=== PATIENT | male | born 1940 | race Caucasian/White ===

== ENCOUNTER → 2017-12-07 13:00 | Outpatient (CLI) | payer MEDICARE, OTHER, SELFPAY | PROVIDERS: Family Provider Family Medicine; PCP Family Medicine | DX: Z23 Encounter for immunization (principal) | CPT/HCPCS: 90471; 90662 ==

== ENCOUNTER → 2018-01-03 12:35 | Outpatient (CLI) | payer MEDICARE, OTHER, SELFPAY ==
[2018-01-03 13:32] LABS: Hemoglobin 13.7 g/dL (13.5-17.5)
[2018-01-03 14:32] LABS: HEMOLYSIS < 15 (0-50); Iron 66 ug/dL (49-181)
[2018-01-03 14:36] LABS: BUN Creatinine Ratio 13.3 (6-22); Blood Urea Nitrogen 20 mg/dL (9-20); Calcium 9.3 mg/dL (8.4-10.2); Carbon Dioxide 24 mmol/L (22-32); Chloride 106 mmol/L (98-107); Estimated Glomerular Filt Rate 45.5 mL/min (>60); Glucose 109 mg/dL (80-110); HEMOLYSIS < 15 (0-50); Potassium 4.2 mmol/L (3.4-5.1); Sodium 141 mmol/L (137-145)
[2018-01-03 14:42] LABS: Percent Iron Saturation 17 % (20-50); Total Iron Binding Capacity 391 ug/dL (261-462); Transferrin 352 mg/dL (206-381)
[2018-01-03 16:16] LABS: Ferritin 12.7 ng/mL (17.9-464)
[2018-01-03 16:34] LABS: Creatinine Urine Random 61.7 mg/dL; Protein (Total) Urine Random 14 mg/dL (0-12); Protein Creatinine Ratio Urine 0.22 GRAM/24H
[2018-01-06 15:35] LABS: Parathyroid Hormone Int 68 pg/mL (14-64)
== END ==
PROVIDERS: Family Provider Family Medicine; PCP Family Medicine; Visit Provider Student in an Organized Health Care Education/Training Program
DX: N05.9 Unspecified nephritic syndrome with unspecified morphologic changes (principal); D50.0 Iron deficiency anemia secondary to blood loss (chronic); D64.9 Anemia, unspecified; N25.81 Secondary hyperparathyroidism of renal origin; R80.9 Proteinuria, unspecified
CPT/HCPCS: 36415; 80048; 82570; 82728; 83540; 83550; 83970; 84156; 85014; 85018

== ENCOUNTER → 2018-07-22 13:19 | Outpatient (CLI) | payer MEDICARE, OTHER, SELFPAY ==
[2018-07-22 13:43] LABS: Hematocrit 41.3 % (41-53); Hemoglobin 13.9 g/dL (13.5-17.5)
[2018-07-22 14:13] LABS: BUN Creatinine Ratio 13.3 (6-22); Blood Urea Nitrogen 20 mg/dL (9-20); Calcium 9.3 mg/dL (8.4-10.2); Carbon Dioxide 24 mmol/L (22-32); Chloride 105 mmol/L (98-107); Estimated Glomerular Filt Rate 45.5 mL/min (>60); Glucose 101 mg/dL (80-110); HEMOLYSIS < 15 (0-50); Potassium 4.2 mmol/L (3.4-5.1); Sodium 139 mmol/L (137-145)
[2018-07-22 14:49] LABS: Ferritin 17.1 ng/mL (17.9-464)
[2018-07-22 14:52] LABS: HEMOLYSIS < 15 (0-50); Iron 104 ug/dL (49-181)
[2018-07-22 15:02] LABS: Percent Iron Saturation 28 % (20-50); Total Iron Binding Capacity 376 ug/dL (261-462); Transferrin 288 mg/dL (206-381)
[2018-07-22 16:29] LABS: Creatinine Urine Random 94.6 mg/dL; Protein (Total) Urine Random 9 mg/dL (0-12); Protein Creatinine Ratio Urine 0.09 GRAM/24H
[2018-07-26 15:23] LABS: Parathyroid Hormone Int 88 pg/mL (14-64)
== END ==
PROVIDERS: Visit Provider Student in an Organized Health Care Education/Training Program
DX: N05.9 Unspecified nephritic syndrome with unspecified morphologic changes (principal); D50.0 Iron deficiency anemia secondary to blood loss (chronic); D64.9 Anemia, unspecified; N25.81 Secondary hyperparathyroidism of renal origin; R80.9 Proteinuria, unspecified
CPT/HCPCS: 36415; 80048; 82570; 82728; 83540; 83550; 83970; 84156; 85014; 85018

== ENCOUNTER → 2019-02-21 12:00 | Outpatient (CLI) | payer MEDICARE, OTHER, SELFPAY ==
[2019-02-21 14:35] LABS: Vitamin D 25 Hydroxy (D3) 35.7 ng/mL (30.0-100.0)
== END ==
PROVIDERS: PCP Student in an Organized Health Care Education/Training Program; Visit Provider Student in an Organized Health Care Education/Training Program
DX: E55.9 Vitamin D deficiency, unspecified (principal)
CPT/HCPCS: 36415; 82306

== ENCOUNTER → 2019-03-07 12:46 | Outpatient (CLI) | payer MEDICARE, OTHER, SELFPAY ==
[2019-03-07 13:33] LABS: Hematocrit 41.5 % (41-53)
[2019-03-07 14:44] LABS: Creatinine Urine Random 80.7 mg/dL; Protein (Total) Urine Random 11 mg/dL (0-12); Protein Creatinine Ratio Urine 0.13 GRAM/24H
[2019-03-07 14:47] LABS: BUN Creatinine Ratio 13.9 (6-22); Blood Urea Nitrogen 25 mg/dL (9-20); Calcium 9.7 mg/dL (8.4-10.2); Carbon Dioxide 25 mmol/L (22-32); Chloride 107 mmol/L (98-107); Estimated Glomerular Filt Rate 36.8 mL/min (>60); Glucose 99 mg/dL (80-110); HEMOLYSIS < 15 (0-50); Potassium 5.1 mmol/L (3.4-5.1); Sodium 141 mmol/L (137-145)
[2019-03-09 16:39] LABS: Parathyroid Hormone Int 44 pg/mL (14-64)
== END ==
PROVIDERS: Family Provider Student in an Organized Health Care Education/Training Program; PCP Student in an Organized Health Care Education/Training Program; Visit Provider Student in an Organized Health Care Education/Training Program
DX: N05.9 Unspecified nephritic syndrome with unspecified morphologic changes (principal); D64.9 Anemia, unspecified; N25.81 Secondary hyperparathyroidism of renal origin; R80.9 Proteinuria, unspecified
CPT/HCPCS: 36415; 80048; 82570; 83970; 84156; 85014; 85018

== ENCOUNTER → 2019-08-14 11:23 | Outpatient (CLI) | payer MEDICARE, OTHER, SELFPAY ==
[2019-08-14 13:14] LABS: Hematocrit 40.3 % (41-53); Hemoglobin 13.7 g/dL (13.5-17.5)
[2019-08-14 13:48] LABS: BUN Creatinine Ratio 16.4 (6-22); Blood Urea Nitrogen 27 mg/dL (9-20); Calcium 9.5 mg/dL (8.4-10.2); Carbon Dioxide 24 mmol/L (22-32); Chloride 107 mmol/L (98-107); Estimated Glomerular Filt Rate 40.7 mL/min (>60); Glucose 84 mg/dL (80-110); HEMOLYSIS < 15 (0-50); Potassium 4.7 mmol/L (3.4-5.1); Sodium 140 mmol/L (137-145)
[2019-08-14 17:05] LABS: Creatinine Urine Random 74.2 mg/dL; Protein (Total) Urine Random 11 mg/dL (0-12); Protein Creatinine Ratio Urine 0.14 GRAM/24H
[2019-08-15 08:19] LABS: Parathyroid Hormone Int 44 pg/mL (15-65)
== END ==
PROVIDERS: Family Provider Student in an Organized Health Care Education/Training Program; PCP Student in an Organized Health Care Education/Training Program; Referring Provider Student in an Organized Health Care Education/Training Program; Visit Provider Student in an Organized Health Care Education/Training Program
DX: D64.9 Anemia, unspecified (principal); N05.9 Unspecified nephritic syndrome with unspecified morphologic changes; N25.81 Secondary hyperparathyroidism of renal origin; R80.9 Proteinuria, unspecified
CPT/HCPCS: 36415; 80048; 82570; 83970; 84156; 85014; 85018

== ENCOUNTER → 2020-02-15 11:26 | Outpatient (CLI) | payer MEDICARE, OTHER, SELFPAY ==
[2020-02-15 12:36] LABS: Creatinine Urine Random 88.2 mg/dL; Protein (Total) Urine Random 11 mg/dL (0-12); Protein Creatinine Ratio Urine 0.12 GRAM/24H
[2020-02-15 12:52] LABS: Hematocrit 39.4 % (41-53)
[2020-02-15 13:23] LABS: BUN Creatinine Ratio 15.4 (6-22); Blood Urea Nitrogen 26 mg/dL (9-20); Calcium 9.4 mg/dL (8.4-10.2); Carbon Dioxide 26 mmol/L (22-32); Chloride 106 mmol/L (98-107); Estimated Glomerular Filt Rate 39.4 mL/min (>60); Glucose 107 mg/dL (80-110); HEMOLYSIS < 15 (0-50); Potassium 4.6 mmol/L (3.4-5.1); Sodium 139 mmol/L (137-145)
[2020-02-16 10:04] LABS: Parathyroid Hormone Int 34 pg/mL (15-65)
== END ==
PROVIDERS: Family Provider Student in an Organized Health Care Education/Training Program; PCP Student in an Organized Health Care Education/Training Program; Referring Provider Student in an Organized Health Care Education/Training Program; Visit Provider Student in an Organized Health Care Education/Training Program
DX: N05.9 Unspecified nephritic syndrome with unspecified morphologic changes (principal); R80.9 Proteinuria, unspecified; D64.9 Anemia, unspecified; N25.81 Secondary hyperparathyroidism of renal origin
CPT/HCPCS: 36415; 80048; 82570; 83970; 84156; 85014; 85018

== ENCOUNTER → 2020-07-22 11:28 | Outpatient (CLI) | payer MEDICARE, OTHER, SELFPAY ==
[2020-07-22 12:16] LABS: Hematocrit 39.2 % (41-53); Hemoglobin 12.8 g/dL (13.5-17.5)
[2020-07-22 13:52] LABS: Creatinine Urine Random 67.8 mg/dL; Protein (Total) Urine Random 10 mg/dL (0-12); Protein Creatinine Ratio Urine 0.14 GRAM/24H
[2020-07-22 13:55] LABS: BUN Creatinine Ratio 12.5 (6-22); Blood Urea Nitrogen 20 mg/dL (9-20); Calcium 9.9 mg/dL (8.4-10.2); Carbon Dioxide 24 mmol/L (22-32); Chloride 108 mmol/L (98-107); Glucose 75 mg/dL (80-110); HEMOLYSIS < 15 (0-50); Potassium 5.2 mmol/L (3.4-5.1); Sodium 139 mmol/L (137-145)
[2020-07-23 07:38] LABS: Parathyroid Hormone Int 59 pg/mL (15-65)
== END ==
PROVIDERS: Family Provider Student in an Organized Health Care Education/Training Program; PCP Student in an Organized Health Care Education/Training Program; Referring Provider Student in an Organized Health Care Education/Training Program; Visit Provider Student in an Organized Health Care Education/Training Program
DX: N05.9 Unspecified nephritic syndrome with unspecified morphologic changes (principal); D64.9 Anemia, unspecified; N25.81 Secondary hyperparathyroidism of renal origin; R80.9 Proteinuria, unspecified
CPT/HCPCS: 36415; 80048; 82570; 83970; 84156; 85014; 85018

== ENCOUNTER → 2020-07-24 07:44 | Outpatient (CLI) | payer MEDICARE, OTHER, SELFPAY ==
[2020-07-24 09:29] LABS: HEMOLYSIS < 15 (0-50); Potassium 4.5 mmol/L (3.4-5.1)
== END ==
PROVIDERS: Family Provider Student in an Organized Health Care Education/Training Program; PCP Student in an Organized Health Care Education/Training Program; Referring Provider Student in an Organized Health Care Education/Training Program; Visit Provider Student in an Organized Health Care Education/Training Program
DX: E87.5 Hyperkalemia (principal)
CPT/HCPCS: 36415; 84132

== ENCOUNTER → 2020-08-30 17:16 | Outpatient (CLI) | payer MEDICARE, OTHER, SELFPAY ==
[2020-08-30 20:31] LABS: Blood Urea Nitrogen 26 mg/dL (9-20); Calcium 9.5 mg/dL (8.4-10.2); Carbon Dioxide 26 mmol/L (22-32); Chloride 109 mmol/L (98-107); Estimated Glomerular Filt Rate 35.3 mL/min (>60); Glucose 93 mg/dL (80-110); HEMOLYSIS < 15 (0-50); Potassium 4.4 mmol/L (3.4-5.1); Sodium 143 mmol/L (137-145)
== END ==
PROVIDERS: Family Provider Student in an Organized Health Care Education/Training Program; PCP Student in an Organized Health Care Education/Training Program; Referring Provider Student in an Organized Health Care Education/Training Program; Visit Provider Student in an Organized Health Care Education/Training Program
DX: N05.9 Unspecified nephritic syndrome with unspecified morphologic changes (principal)
CPT/HCPCS: 36415; 80048

== ENCOUNTER → 2020-10-07 11:12 | Outpatient (CLI) | payer MEDICARE, OTHER, SELFPAY ==
[2020-10-07 12:27] LABS: Hematocrit 40.3 % (41-53); Hemoglobin 13.3 g/dL (13.5-17.5); Mean Corpuscular Hemoglobin 29.6 PG (26-34); Mean Corpuscular Volume 89.7 fL (80-100); Platelet Count 235 X10^3/uL (150-400); Red Blood Cell Count 4.49 X10^6/uL (4.5-5.9); Red Cell Distribution Width 14.2 % (11.6-14.8); White Blood Cell Count 6.6 X10^3/uL (4.5-11.0)
[2020-10-07 12:53] LABS: HEMOLYSIS < 15 (0-50); Iron 92 ug/dL (49-181)
[2020-10-07 13:05] LABS: Percent Iron Saturation 22 % (20-50); Total Iron Binding Capacity 417 ug/dL (261-462); Transferrin 321 mg/dL (206-381)
[2020-10-07 13:25] LABS: TSH w/ Reflex to FT4 3.03 uIU/mL (0.47-4.68)
[2020-10-07 13:28] LABS: Vitamin B12 Reflex MMA if <400 < 159 pg/mL (239-931)
[2020-10-07 16:22] LABS: Vitamin D 25 Hydroxy (D3) 43.2 ng/mL (30.0-100.0)
[2020-10-09 01:48] LABS: Methylmalonic Acid,Serum 1633 nmol/L (0-378)
[2020-10-09 02:14] LABS: Vitamin B1 136.4 nmol/L (66.5-200.0)
== END ==
PROVIDERS: Family Provider Student in an Organized Health Care Education/Training Program; PCP Student in an Organized Health Care Education/Training Program; Referring Provider Student in an Organized Health Care Education/Training Program; Visit Provider Student in an Organized Health Care Education/Training Program
DX: N18.32 Chronic kidney disease, stage 3b (principal); I10 Essential (primary) hypertension; R41.3 Other amnesia
CPT/HCPCS: 36415; 82306; 82607; 83540; 83550; 83921; 84425; 84443; 85027

== ENCOUNTER → 2021-02-24 14:18 | Outpatient (CLI) | payer MEDICARE, OTHER, SELFPAY ==
[2021-02-24 14:54] LABS: Hematocrit 39.7 % (41-53); Hemoglobin 13.1 g/dL (13.5-17.5)
[2021-02-24 15:32] LABS: BUN Creatinine Ratio 13.8 (6-22); Blood Urea Nitrogen 23 mg/dL (9-20); Calcium 9.6 mg/dL (8.4-10.2); Carbon Dioxide 25 mmol/L (22-32); Chloride 105 mmol/L (98-107); Estimated Glomerular Filt Rate 39.9 mL/min (>60); Glucose 114 mg/dL (80-110); HEMOLYSIS < 15 (0-50); Potassium 4.3 mmol/L (3.4-5.1); Sodium 141 mmol/L (137-145)
[2021-02-24 15:46] LABS: Protein (Total) Urine Random 8 mg/dL (0-12); Protein Creatinine Ratio Urine 0.08 GRAM/24H
[2021-02-25 09:04] LABS: Parathyroid Hormone Int 62 pg/mL (15-65)
== END ==
PROVIDERS: Family Provider Student in an Organized Health Care Education/Training Program; PCP Student in an Organized Health Care Education/Training Program; Referring Provider Student in an Organized Health Care Education/Training Program; Visit Provider Student in an Organized Health Care Education/Training Program
DX: N05.9 Unspecified nephritic syndrome with unspecified morphologic changes (principal); D64.9 Anemia, unspecified; N25.81 Secondary hyperparathyroidism of renal origin
CPT/HCPCS: 36415; 80048; 82570; 83970; 84156; 85014; 85018

== ENCOUNTER → 2021-03-04 08:36 | Outpatient (CLI) | payer MEDICARE, OTHER, SELFPAY ==
[2021-03-04 10:05] LABS: Vitamin B12 Reflex MMA if <400 281 pg/mL (239-931)
[2021-03-07 10:44] LABS: Methylmalonic Acid,Serum 213 nmol/L (0-378)
== END ==
PROVIDERS: Family Provider Student in an Organized Health Care Education/Training Program; PCP Student in an Organized Health Care Education/Training Program; Referring Provider Student in an Organized Health Care Education/Training Program; Visit Provider Student in an Organized Health Care Education/Training Program
DX: E53.8 Deficiency of other specified B group vitamins (principal)
CPT/HCPCS: 36415; 82607; 83921

== ENCOUNTER 2021-06-09 10:30 | Outpatient (RCR) | payer MEDICARE, OTHER, SELFPAY ==
--- NOTE | 2021-03-18 16:37 | ST.IPSLE ---
Visit Care Team Role Provider Type Michael Black MD Attending Provider Physician Family Provider Primary Care Provider Referring Provider Specialty: Internal Medicine Address: [address] [place] [address], [address], [address] Email: [email or web address] Current Diagnoses Other amnesia (03/18/21) Past Medical History (Last Updated 10/24/20 @ 14:17 by Vikas Kay RN) B12 deficiency (Medical) Bladder cancer (Medical ~2003) Chicken pox (Medical ~2016) Gout (Medical ~2013) Hemorrhoid (Medical) 1969' History of malignant neoplasm of prostate (Medical) Kidney failure (Medical ~2014) 40% Skin cancer (Medical) Urinary incontinence, mixed (Medical) Speech-Language Pathology Speech/Language Eval [employer] SUPERINTENDENT Adult Cognitive Linguistic Eval Start: 03/18/21 08:30 Freq: Status: Active Protocol: Document 03/18/21 08:30 FREDIS (Rec: 03/18/21 08:42 FREDIS [email or web address]) Adult Cognitive Linguistic Evaluation Session Time Visit Start Time 08:30 Visit Stop Time 09:30 Total Visit Minutes 60 Visit Information Visit Number Initial Evaluation Plan of Care Dates 03/18/21 - 06/16/21 Insurance Information Medicare Referral Referring Provider Dr. Michael Black Reason for Referral Other Amnesia Setting Assessment Location Outpatient Care Visit Type Note Type Initial evaluation Next Note Type Next Note Type Treatment Note Patient Information Identification Type Name,ID Card Medical History The pt is a 80-yr-old male with c/o changes in memory that have worsened gradually over the last 3 years (as documented by his SO, Mona). He has difficulty recalling birthdays, passwords, conversational and directional information, names of friends , grandkids and great- grandkids not regularly visited, etc. The pt was recently found by Dr. Black to have a significant B-12 deficiency and now receives regular B-12 shots, which have boosted his ambition and some memory skills (per pt/SO report) but the majority of memory symptoms persist and interfere with his ability to independently manage daily tasks. As a result, he is increasingly dependent on his SO and on external tools, such as written notes. He and Mona have set up a whiteboard at home to track critical information. The pt takes no oral medications, so remembering meds is not an issue. Language(s) Spoken in the Home Vietnamese Occupation Status Retired [employer] Operator Previous Therapy Previous Speech-Language Therapy No Subjective Patient Report The pt arrived on time accompanied by SO, who was present throughout the session . Both provided case history. The pt had difficulty specifying details about memory loss, which was supplemented by SO. Pt was in agreement with her report. SO reported these deficits have created a challenge within their relationship, and she expressed an eagerness to participate in therapy and HEP . Mental Status Alert,Responsive,Cooperative Assessment Oral Motor Examination Completed No Informal Assessment Pragmatic Language Normal Yes Speech Normal Yes Cognition Normal No Cognitive Impairment(s) Attention,Short-term memory, Problem solving,Thought organization Formal Assessment Standardized Test/Screener Type Scales of Cognitive and Communicative Ability (SCCAN) Administration Initiated Results SCCAN was completed with the exception of Clock Drawing (value = 1 pt and will be completed at next session). This may impact results of total raw score, attention, and problem solving; no other scores are impacted. Total Raw Score: 70 %ile Rank: <1 SCCAN Index: 50 Overall SCCAN Degree of Severity: Mild SCCAN Scale Performance: Oral Expression: 15/19 (79%) Orientation: 12/12 (100%) Memory: 6/10 (32%) Speech Comprehension: 11/13 (85%) Reading Comprehension: 10/12 (83%) Writin/7 (71%) Without Inclusion of Clock Drawing (1 pt): Attention: 11/16 (69%) Problem Solvin/23 (78%) Findings/Results Language Function Mildly impaired Cognitive Function Moderately-severely impaired Findings The pt presents with moderate- severe memory impairment, moderate attention impairment; and mild-moderate impairments in areas of expressive language and problem solving. Expressive language deficits appear to be largely impacted by attention and memory deficits vs exclusive language impairment. Skilled intervention is medically necessary to improve expressive and cognitive communication skills to increase the pt's ability to perform ADLs and personal/ family responsibilities independently, maintain relationships, and improve QOL . Cognitive Communication Deficits Self-awareness of Cognitive- Predictive awareness (able to Communication Deficits predict problem; impact of impairments) Impact on Functioning Activity Limits/Particip.Rest. Mod: General Tasks and Demands Household Tasks Interpersonal Interactions Community Safety Risks Mild: Being Left Alone at Home Reacting to Emergency Prognosis Prognosis Good Based on Cognitive status,Family support,Comorbidities,Duration of symptoms/severity Plan of Care Speech-Language Treatment Yes Frequency 1x/wk Duration 2-3 mos Patient/Caregiver Education Described results of evaluation,Patient expressed understanding of evaluation, Patient expressed agreement with goals and treatment plans ,Family/caregivers expressed understanding of evaluation, Family/caregivers expressed agreement with goals and treatment plan,Patient requires further education/ training,Family/caregivers require further education/ training Short Term Goals 1. The pt will collaborate with [employer] SUPERINTENDENT and SO to develop external memory tools to increase independence with ADLs, maintain relationships, and improve QOL. 2. Using external memory tools as needed, the pt will perform structured memory tasks with 80% acc to improve independence with ADLs. 3. The pt will demonstrate understanding of active listening skills by using them in 75+ opportunities in structured tasks to improve attention skills necessary for memory in functional situations. 4. The pt will demonstrate understanding of memory strategies by using them in 75 + opportunities in structured tasks to improve memory skills necessary ADLs (e.g., recalling passwords, names, etc.). 5. The pt will complete simple structured problem solving tasks with 80% acc to improve mental flexibility and problem solving skills necessary for functional ADLs. Half-Way Goals 1. Using external and internal memory tools as needed, the pt will perform ADLs and personal/family responsibilities with Modified [place], as measured by pt/family report and clinician judgment.
--- NOTE | 2021-03-31 11:45 | ST.OPTN ---
Visit Care Team Role Provider Type Michael Black MD Attending Provider Physician Family Provider Primary Care Provider Referring Provider Address: [address] [place] [address], [address], [place], [address] RUMPER Treatment Note RUMPER Treatment Note Start: 03/18/21 08:30 Freq: Status: Active Protocol: Document 04/01/21 16:44 FREDIS (Rec: 04/01/21 16:44 FREDIS [email or web address]) Speech Pathology Treatment Note Session Time Visit Start Time 08:30 Visit Stop Time 09:25 Total Visit Minutes 55 Visit Information Visit Number 04/07 Plan of Care Dates 03/18/21 - 06/16/21 Insurance Information Medicare Setting Treatment Setting Outpatient Care Next Note Type Next Note Type Treatment Note General Information General Information The pt is a 80-yr-old male with c/o changes in memory that have worsened gradually over the last 3 years (as documented by his SO, Mona). He has difficulty recalling birthdays, passwords, conversational and directional information, names of friends , grandkids and great- grandkids not regularly visited, etc. The pt was recently found by Dr. Black to have a significant B-12 deficiency and now receives regular B-12 shots, which have boosted his ambition and some memory skills (per pt/SO report) but the majority of memory symptoms persist and interfere with his ability to independently manage daily tasks. As a result, he is increasingly dependent on his SO and on external tools, such as written notes. He and Mona have set up a whiteboard at home to track critical information. The pt takes no oral medications, so remembering meds is not an issue. Subjective Observations/Patient Presentation Pt arrived on time accompanied by SO who was present throughout session. SO reported that the pt often recalls memories of travel experiences that occurred ~5- 15 yrs ago but does not recall that she shared those experiences with him. Also states that he repeats conversations. She finds this frustrating and difficult to maintain patience. Pt expressed minimal awareness of such behavior. Chief Complaint(s) Cognitive Patient Knowledge/Awareness of RUMPER Role Good in Treatment Parent/Caretake Knowledge/Awareness of Good RUMPER Role in Treatment Objective Short Term Goals 1. The pt will collaborate with RUMPER and SO to develop external memory tools to increase independence with ADLs, maintain relationships, and improve QOL. 2. Using external memory tools as needed, the pt will perform structured memory tasks with 80% acc to improve independence with ADLs. 3. The pt will demonstrate understanding of active listening skills by using them in 75+ opportunities in structured tasks to improve attention skills necessary for memory in functional situations. 4. The pt will demonstrate understanding of memory strategies by using them in 75 + opportunities in structured tasks to improve memory skills necessary ADLs (e.g., recalling passwords, names, etc.). 5. The pt will complete simple structured problem solving tasks with 80% acc to improve mental flexibility and problem solving skills necessary for functional ADLs. Penitentiary Goals 1. Using external and internal memory tools as needed, the pt will perform ADLs and personal/family responsibilities with Modified [place], as measured by pt/family report and clinician judgment. Treatment Activities Administered clock drawing that was omitted during initial evaluation. Pt included all numbers in sequence and with appropriate rotation and spacing. Hands were not included; pt wrote a small ?10? between numbers 11 and 12 and sadi a line from ? 10? to 11, hence not scoring points for this task. Therefore, scoring presented in initial evaluation stands. Educated pt/spouse of assessment results. Spouse had questions related to potential roles of Neurologist and Neuropsychologist, which were answered. Upon questioning in pt/spouse would like to pursue Neuropsych evaluation, both stated a desire to pursue ST services first and, if progress is not made, then consider further evaluation. RUMPER agreed. Consulted with pt/spouse RE POC and goals. They were agreeable to all goals outlined in initial evaluation . Initiated education RE normal vs abnormal memory changes with age; impact of attention skills on other cognitive-linguistic skills, including memory; use of external memory tools to support memory and reduce caregiver burden; conversational statements to indicate what the pt does and does not recall from previous conversations/experiences. SO also asked about medications, supplements, and nutrition related to memory enhancement. The couple was referred to PCP for advice about medication and supplements. General information about diet was provided, particularly to avoid processed foods and pursue whole foods, especially healthy fats and colorful foods that tend to be nutrient heavy. Recommended they consult a Carpet Jack or Registered Dietitian for more specific information. Pt/SO were advised to discuss these topics together at home and decide on any changes in habits that they may wish to pursue. Will discuss f/u at next session and initiate external memory tool development and continue training in attention skills. Assessment Impairments Identified Attention,Cognitive-Linguistic Skills,Memory - Short Term, Memory - Working Assessment of Improvement Both the pt and SO were receptive to all information provided. They asked good questions. The pt expressed minimal awareness of specific examples of memory lapses that were identified by SO but acknowledged good general awareness of decline. He was agreeable to the established goals. Reviewed with Patient Goals,Progress Being Made,Home Exercise Program Patient/Caregiver Understanding Good Plan Amount of Therapy Recommended 2-3 Months Frequency of Treatment Once a Week Length of Session 45 Minutes Therapeutic Contents Client Education,Cognitive- Linguistic Training,Home Exercise Program,Information Processing Provided Patient/Caregiver Instruction Home Exercise Program,Plan of Care,Questions/Concerns Therapy Recommendations Continue with Current Program
--- NOTE | 2021-04-01 10:14 | ST.OPTN ---
Visit Care Team Role Provider Type Michael Black MD Attending Provider Physician Family Provider Primary Care Provider Referring Provider Address: [address] [place] [address], [address], [place], [address] ADVERTISING EDITOR Treatment Note ADVERTISING EDITOR Treatment Note Start: 03/18/21 08:30 Freq: Status: Active Protocol: Document 04/01/21 16:44 FREDIS (Rec: 04/01/21 16:44 FREDIS [email or web address]) Speech Pathology Treatment Note Session Time Visit Start Time 08:30 Visit Stop Time 09:25 Total Visit Minutes 55 Visit Information Visit Number 04/07 Plan of Care Dates 03/18/21 - 06/16/21 Insurance Information Medicare Setting Treatment Setting Outpatient Care Next Note Type Next Note Type Treatment Note General Information General Information The pt is a 80-yr-old male with c/o changes in memory that have worsened gradually over the last 3 years (as documented by his SO, Mona). He has difficulty recalling birthdays, passwords, conversational and directional information, names of friends , grandkids and great- grandkids not regularly visited, etc. The pt was recently found by Dr. Black to have a significant B-12 deficiency and now receives regular B-12 shots, which have boosted his ambition and some memory skills (per pt/SO report) but the majority of memory symptoms persist and interfere with his ability to independently manage daily tasks. As a result, he is increasingly dependent on his SO and on external tools, such as written notes. He and Mona have set up a whiteboard at home to track critical information. The pt takes no oral medications, so remembering meds is not an issue. Subjective Observations/Patient Presentation Pt arrived on time accompanied by SO who was present throughout session. SO reported that the pt often recalls memories of travel experiences that occurred ~5- 15 yrs ago but does not recall that she shared those experiences with him. Also states that he repeats conversations. She finds this frustrating and difficult to maintain patience. Pt expressed minimal awareness of such behavior. Chief Complaint(s) Cognitive Patient Knowledge/Awareness of ADVERTISING EDITOR Role Good in Treatment Parent/Caretake Knowledge/Awareness of Good ADVERTISING EDITOR Role in Treatment Objective Short Term Goals 1. The pt will collaborate with ADVERTISING EDITOR and SO to develop external memory tools to increase independence with ADLs, maintain relationships, and improve QOL. 2. Using external memory tools as needed, the pt will perform structured memory tasks with 80% acc to improve independence with ADLs. 3. The pt will demonstrate understanding of active listening skills by using them in 75+ opportunities in structured tasks to improve attention skills necessary for memory in functional situations. 4. The pt will demonstrate understanding of memory strategies by using them in 75 + opportunities in structured tasks to improve memory skills necessary ADLs (e.g., recalling passwords, names, etc.). 5. The pt will complete simple structured problem solving tasks with 80% acc to improve mental flexibility and problem solving skills necessary for functional ADLs. Senior Living Goals 1. Using external and internal memory tools as needed, the pt will perform ADLs and personal/family responsibilities with Modified [place], as measured by pt/family report and clinician judgment. Treatment Activities Administered clock drawing that was omitted during initial evaluation. Pt included all numbers in sequence and with appropriate rotation and spacing. Hands were not included; pt wrote a small ?10? between numbers 11 and 12 and sadi a line from ? 10? to 11, hence not scoring points for this task. Therefore, scoring presented in initial evaluation stands. Educated pt/spouse of assessment results. Spouse had questions related to potential roles of Neurologist and Neuropsychologist, which were answered. Upon questioning in pt/spouse would like to pursue Neuropsych evaluation, both stated a desire to pursue ST services first and, if progress is not made, then consider further evaluation. ADVERTISING EDITOR agreed. Consulted with pt/spouse RE POC and goals. They were agreeable to all goals outlined in initial evaluation . Initiated education RE normal vs abnormal memory changes with age; impact of attention skills on other cognitive-linguistic skills, including memory; use of external memory tools to support memory and reduce caregiver burden; conversational statements to indicate what the pt does and does not recall from previous conversations/experiences. SO also asked about medications, supplements, and nutrition related to memory enhancement. The couple was referred to PCP for advice about medication and supplements. General information about diet was provided, particularly to avoid processed foods and pursue whole foods, especially healthy fats and colorful foods that tend to be nutrient heavy. Recommended they consult a Public Affairs Specialist or Registered Dietitian for more specific information. Pt/SO were advised to discuss these topics together at home and decide on any changes in habits that they may wish to pursue. Will discuss f/u at next session and initiate external memory tool development and continue training in attention skills. Assessment Impairments Identified Attention,Cognitive-Linguistic Skills,Memory - Short Term, Memory - Working Assessment of Improvement Both the pt and SO were receptive to all information provided. They asked good questions. The pt expressed minimal awareness of specific examples of memory lapses that were identified by SO but acknowledged good general awareness of decline. He was agreeable to the established goals. Reviewed with Patient Goals,Progress Being Made,Home Exercise Program Patient/Caregiver Understanding Good Plan Amount of Therapy Recommended 2-3 Months Frequency of Treatment Once a Week Length of Session 45 Minutes Therapeutic Contents Client Education,Cognitive- Linguistic Training,Home Exercise Program,Information Processing Provided Patient/Caregiver Instruction Home Exercise Program,Plan of Care,Questions/Concerns Therapy Recommendations Continue with Current Program
--- NOTE | 2021-04-08 17:03 | ST.OPTN ---
Visit Care Team Role Provider Type Michael Black MD Attending Provider Physician Family Provider Primary Care Provider Referring Provider Address: [address] [place] [address], [address], [place], [address] TRUCKSMITH Treatment Note TRUCKSMITH Treatment Note Start: 03/18/21 08:30 Freq: Status: Active Protocol: Document 04/08/21 16:52 FREDIS (Rec: 04/08/21 17:03 FREDIS [email or web address]) Speech Pathology Treatment Note Session Time Visit Start Time 08:30 Visit Stop Time 09:25 Total Visit Minutes 55 Visit Information Visit Number 05/08 Plan of Care Dates 03/18/21 - 06/16/21 Insurance Information Medicare Setting Treatment Setting Outpatient Care Next Note Type Next Note Type Treatment Note General Information General Information The pt is a 80-yr-old male with c/o changes in memory that have worsened gradually over the last 3 years (as documented by his SO, Mona). He has difficulty recalling birthdays, passwords, conversational and directional information, names of friends , grandkids and great- grandkids not regularly visited, etc. The pt was recently found by Dr. Black to have a significant B-12 deficiency and now receives regular B-12 shots, which have boosted his ambition and some memory skills (per pt/SO report) but the majority of memory symptoms persist and interfere with his ability to independently manage daily tasks. As a result, he is increasingly dependent on his SO and on external tools, such as written notes. He and Mona have set up a whiteboard at home to track critical information. The pt takes no oral medications, so remembering meds is not an issue. Subjective Observations/Patient Presentation Pt arrived on time accompanied by SO who was present throughout session. The couple has established a communication center at home as a central location for all important information, as discussed at last session. SO asked questions about whether or not the couple should consider medicinal treatment for cognitive decline, and if so, when. Chief Complaint(s) Cognitive Patient Knowledge/Awareness of TRUCKSMITH Role Good in Treatment Parent/Caretake Knowledge/Awareness of Good TRUCKSMITH Role in Treatment Objective Short Term Goals 1. The pt will collaborate with TRUCKSMITH and SO to develop external memory tools to increase independence with ADLs, maintain relationships, and improve QOL. 2. Using external memory tools as needed, the pt will perform structured memory tasks with 80% acc to improve independence with ADLs. 3. The pt will demonstrate understanding of active listening skills by using them in 75+ opportunities in structured tasks to improve attention skills necessary for memory in functional situations. 4. The pt will demonstrate understanding of memory strategies by using them in 75 + opportunities in structured tasks to improve memory skills necessary ADLs (e.g., recalling passwords, names, etc.). 5. The pt will complete simple structured problem solving tasks with 80% acc to improve mental flexibility and problem solving skills necessary for functional ADLs. Prison Goals 1. Using external and internal memory tools as needed, the pt will perform ADLs and personal/family responsibilities with Modified [place], as measured by pt/family report and clinician judgment. Treatment Activities Continued education to pt/SO RE POC, development of external memory tools, and rehabilitation of internal memory skills. All questions were answered. Agreed that if no progress is made via Speech Therapy or if symptoms worsen within 3-6 mos of treatment, referral to Neuropsychology will be considered. For now, the couple wish to proceed without medication. Initiated development of Memory Notebook. The pt choose topics and created sections/ tabs within the notebook, provided by TRUCKSMITH, including Appts, Names, Projects and Misc. He entered this TRUCKSMITH's name and title. The couple agreed to add information to the notebook over the week to complete its development and initiate usage. Examples of how information in the Memory Notebook can be used for strengthening internal memory skills were provided and will be further targeted in future sessions. Assessment Patient Response to Treatment Good Rehab Potential Good Impairments Identified Attention,Cognitive-Linguistic Skills,Memory - Short Term, Memory - Working Assessment of Overall Progress Unchanged Assessment of Improvement Both the pt and SO were receptive to all information provided. They asked good questions. The pt was enthusiastic and participatory in development of Memory Notebook. The couple has developed and is using a central Communication Center at home. The couple agreed to TRUCKSMITH's instruction that the pt record information on the board and in notebook when possible to strengthen recall. The pt was also agreeable with instructions to review daily schedules each morning and evening, and SO was agreeable to assist with this. Reviewed with Patient Goals,Progress Being Made,Home Exercise Program Patient/Caregiver Understanding Good Plan Amount of Therapy Recommended 4 Months Frequency of Treatment Once a Week Length of Session 45 Minutes Therapeutic Contents Client Education,Cognitive- Linguistic Training,Home Exercise Program,Information Processing Provided Patient/Caregiver Instruction Home Exercise Program,Plan of Care,Questions/Concerns Therapy Recommendations Continue with Current Program
--- NOTE | 2021-04-21 10:29 | ST.OPTN ---
Visit Care Team Role Provider Type Michael Black MD Attending Provider Physician Family Provider Primary Care Provider Referring Provider Address: [address] [place] [address], Suite [facility], [place], [address] MATERIALS INTERN Treatment Note MATERIALS INTERN Treatment Note Start: 03/18/21 08:30 Freq: Status: Active Protocol: Document 04/21/21 10:19 FREDIS (Rec: 04/21/21 10:29 FREDIS [email or web address]) Speech Pathology Treatment Note Session Time Visit Start Time 08:30 Visit Stop Time 09:20 Total Visit Minutes 50 Visit Information Visit Number 06/05 Plan of Care Dates 03/18/21 - 06/16/21 Insurance Information Medicare Setting Treatment Setting Outpatient Care Visit Type Note Type Treatment Note Next Note Type Next Note Type Treatment Note General Information General Information The pt is a 80-yr-old male with c/o changes in memory that have worsened gradually over the last 3 years (as documented by his SO, Mona). He has difficulty recalling birthdays, passwords, conversational and directional information, names of friends , grandkids and great- grandkids not regularly visited, etc. The pt was recently found by Dr. Black to have a significant B-12 deficiency and now receives regular B-12 shots, which have boosted his ambition and some memory skills (per pt/SO report) but the majority of memory symptoms persist and interfere with his ability to independently manage daily tasks. As a result, he is increasingly dependent on his SO and on external tools, such as written notes. He and Mona have set up a whiteboard at home to track critical information. The pt takes no oral medications, so remembering meds is not an issue. Subjective Observations/Patient Presentation Pt arrived on time accompanied by SO who was present throughout session. The pt brought Memory notebook which he has initiated using with a few entries. He is also writing events/appts on the calendar at home with input from SO. Chief Complaint(s) Cognitive Patient Knowledge/Awareness of MATERIALS INTERN Role Good in Treatment Parent/Caretake Knowledge/Awareness of Good MATERIALS INTERN Role in Treatment Patient/Caregiver Compliance with Home Good Exercise Program Objective Short Term Goals 1. The pt will collaborate with MATERIALS INTERN and SO to develop external memory tools to increase independence with ADLs, maintain relationships, and improve QOL. 2. Using external memory tools as needed, the pt will perform structured memory tasks with 80% acc to improve independence with ADLs. 3. The pt will demonstrate understanding of active listening skills by using them in 75+ opportunities in structured tasks to improve attention skills necessary for memory in functional situations. 4. The pt will demonstrate understanding of memory strategies by using them in 75 + opportunities in structured tasks to improve memory skills necessary ADLs (e.g., recalling passwords, names, etc.). 5. The pt will complete simple structured problem solving tasks with 80% acc to improve mental flexibility and problem solving skills necessary for functional ADLs. Assisted Goals 1. Using external and internal memory tools as needed, the pt will perform ADLs and personal/family responsibilities with Modified [place], as measured by pt/family report and clinician judgment. Treatment Activities Continued education to pt/SO RE POC, development of external memory tools, and rehabilitation of internal memory skills. All questions were answered. Continued development of memory notebook and initiated name/word retrieval strategies trainig. Pt recalled names of his 2 children and 3/5 grandchildren independently with occ need for extended time. With phonemic and/or semantic prompts, he recalled 2 of the remaining 4 family members ( Indpendent recall: 56% acc; with prompts 50% acc). Instructions for word retrieval strategies were provided orally with demonstration and feedback, and in writing. Caregiver training provided RE prompting, and recommendations for HEP tasks that are salient to the pt (e. g., reading aloud from motorcycle magazines; retelling stories of trips taken in past, etc.). Assessment Patient Response to Treatment Good Rehab Potential Good Impairments Identified Attention,Cognitive-Linguistic Skills,Memory - Short Term, Memory - Working Assessment of Overall Progress Unchanged Assessment of Improvement Both the pt and SO were receptive to all information provided. The pt exhibited deficits in recall of extended family names, was moderately responsive to prompting and strategies. Needs reinforcement. Will continue training with ongoing assessment of pt's ability to learn strategy usage, which will help guide tx planning including whether neuropsychological testing may be appropriate for differential diagnosis of normal vs demential cognitive changes. Pt/SO in agreement and verbalized understanding. Reviewed with Patient Goals,Progress Being Made,Home Exercise Program Patient/Caregiver Understanding Good Plan Amount of Therapy Recommended 4 Months Frequency of Treatment Once a Week Length of Session 45 Minutes Treatment Emphasis Next Session Cont mem notebook and names training. Therapeutic Contents Client Education,Cognitive- Linguistic Training,Home Exercise Program,Information Processing Provided Patient/Caregiver Instruction Home Exercise Program,Plan of Care,Questions/Concerns Therapy Recommendations Continue with Current Program
--- NOTE | 2021-04-28 11:30 | ST.OPTN ---
Visit Care Team Role Provider Type Michael Black MD Attending Provider Physician Family Provider Primary Care Provider Referring Provider Address: [address] [place] [address], [address], [place], [address] CORPORATE RECRUITER Treatment Note CORPORATE RECRUITER Treatment Note Start: 03/18/21 08:30 Freq: Status: Active Protocol: Document 04/28/21 10:23 FREDIS (Rec: 04/28/21 10:30 FREDIS [email or web address]) Speech Pathology Treatment Note Session Time Visit Start Time 09:30 Visit Stop Time 10:20 Total Visit Minutes 50 Visit Information Visit Number 07/06 Plan of Care Dates 03/18/21 - 06/16/21 Insurance Information Medicare Setting Treatment Setting Outpatient Care Visit Type Note Type Treatment Note Next Note Type Next Note Type Treatment Note General Information General Information The pt is a 80-yr-old male with c/o changes in memory that have worsened gradually over the last 3 years (as documented by his SO, Mona). He has difficulty recalling birthdays, passwords, conversational and directional information, names of friends , grandkids and great- grandkids not regularly visited, etc. The pt was recently found by Dr. Black to have a significant B-12 deficiency and now receives regular B-12 shots, which have boosted his ambition and some memory skills (per pt/SO report) but the majority of memory symptoms persist and interfere with his ability to independently manage daily tasks. As a result, he is increasingly dependent on his SO and on external tools, such as written notes. He and Mona have set up a whiteboard at home to track critical information. The pt takes no oral medications, so remembering meds is not an issue. Subjective Observations/Patient Presentation Pt arrived on time accompanied by SO who was present throughout session. The pt brought Memory notebook as well as a journal containing labeled pictures of family and stories about trips. He had a Vitamin B12 shot last week. Both he and SO reported a good week with more energy and focus. Chief Complaint(s) Cognitive Patient Knowledge/Awareness of CORPORATE RECRUITER Role Good in Treatment Parent/Caretake Knowledge/Awareness of Good CORPORATE RECRUITER Role in Treatment Patient/Caregiver Compliance with Home Good Exercise Program Objective Short Term Goals 1. The pt will collaborate with CORPORATE RECRUITER and SO to develop external memory tools to increase independence with ADLs, maintain relationships, and improve QOL. 2. Using external memory tools as needed, the pt will perform structured memory tasks with 80% acc to improve independence with ADLs. 3. The pt will demonstrate understanding of active listening skills by using them in 75+ opportunities in structured tasks to improve attention skills necessary for memory in functional situations. 4. The pt will demonstrate understanding of memory strategies by using them in 75 + opportunities in structured tasks to improve memory skills necessary ADLs (e.g., recalling passwords, names, etc.). 5. The pt will complete simple structured problem solving tasks with 80% acc to improve mental flexibility and problem solving skills necessary for functional ADLs. Senior Care Goals 1. Using external and internal memory tools as needed, the pt will perform ADLs and personal/family responsibilities with Modified [place], as measured by pt/family report and clinician judgment. Treatment Activities Continued education to pt/SO RE POC, development of external memory tools, and rehabilitation of internal memory skills. Using journal, the pt recalled names of his two children, one grandchild, and a grandson -in-law independently. With phonemic prompts, her recalled 2 additional names. Skilled feedback was provided including memory strategies, which were added in visual format to the journal. The pt read a story of a motorcycle trip taken with his son and highlighted in yellow the names of all the places they visited to visually isolate liu details. The pt had difficulty recalling the general location of the trip ( [facility]) x2. Recommended adding a small map of [facility] and marking the route for further visual reinforcement. The pt required verbal and gesture guidance to recall two significant tasks he had done over the week. He benefited from guided conversation to reduce cognitive load. Collaborated with pt/SO RE home practice techniques. They verbalized understanding and agreement. Assessment Patient Response to Treatment Good Rehab Potential Good Impairments Identified Attention,Cognitive-Linguistic Skills,Memory - Short Term, Memory - Working Assessment of Overall Progress Unchanged Assessment of Improvement The pt did well pausing and giving himself time to think when naming family members, with moderate success. He was much more responsive to conversational prompts to describe targets vs direct questions (e.g., What is her name? What project did you do?). The couple is doing an excellent job of creating external memory tools that will also allow for practice in building internal memory skills as well. Reviewed with Patient Goals,Progress Being Made,Home Exercise Program Patient/Caregiver Understanding Excellent Plan Amount of Therapy Recommended 4 Months Frequency of Treatment Once a Week Length of Session 45 Minutes Treatment Emphasis Next Session Cont mem notebook and names training. Therapeutic Contents Client Education,Cognitive- Linguistic Training,Home Exercise Program,Information Processing Provided Patient/Caregiver Instruction Home Exercise Program,Plan of Care,Questions/Concerns Therapy Recommendations Continue with Current Program
--- NOTE | 2021-05-12 17:32 | ST.OPTN ---
Visit Care Team Role Provider Type Michael Black MD Attending Provider Physician Family Provider Primary Care Provider Referring Provider Address: [address] [place] [address], [address] [place] [address], [address] PHARMACEUTICAL COMPOUNDING SUPERVISOR Treatment Note PHARMACEUTICAL COMPOUNDING SUPERVISOR Treatment Note Start: 03/18/21 08:30 Freq: Status: Active Protocol: Document 05/12/21 17:24 FREDIS (Rec: 05/12/21 17:31 FREDIS [email or web address]) Speech Pathology Treatment Note Session Time Visit Start Time 09:30 Visit Stop Time 10:15 Total Visit Minutes 45 Visit Information Visit Number 08/05 Plan of Care Dates 03/18/21 - 06/16/21 Insurance Information Medicare Setting Treatment Setting Outpatient Care Visit Type Note Type Treatment Note Next Note Type Next Note Type Treatment Note General Information General Information The pt is a 80-yr-old male with c/o changes in memory that have worsened gradually over the last 3 years (as documented by his SO, Mona). He has difficulty recalling birthdays, passwords, conversational and directional information, names of friends , grandkids and great- grandkids not regularly visited, etc. The pt was recently found by Dr. Black to have a significant B-12 deficiency and now receives regular B-12 shots, which have boosted his ambition and some memory skills (per pt/SO report) but the majority of memory symptoms persist and interfere with his ability to independently manage daily tasks. As a result, he is increasingly dependent on his SO and on external tools, such as written notes. He and Mona have set up a whiteboard at home to track critical information. The pt takes no oral medications, so remembering meds is not an issue. Subjective Observations/Patient Presentation Pt arrived on time accompanied by SO who was present throughout session. The pt brought Memory notebook and a Brain Games activity book. No new complaints. Pt reports feeling things are feeling more normal and SO agreed and stated the pt is engaging in conversation more. She asked the PHARMACEUTICAL COMPOUNDING SUPERVISOR to review the activity book and had questions if other exercises would be more appropriate to improve memory. Chief Complaint(s) Cognitive Patient Knowledge/Awareness of PHARMACEUTICAL COMPOUNDING SUPERVISOR Role Good in Treatment Parent/Caretake Knowledge/Awareness of Good PHARMACEUTICAL COMPOUNDING SUPERVISOR Role in Treatment Patient/Caregiver Compliance with Home Good Exercise Program Objective Short Term Goals 1. The pt will collaborate with PHARMACEUTICAL COMPOUNDING SUPERVISOR and SO to develop external memory tools to increase independence with ADLs, maintain relationships, and improve QOL. 2. Using external memory tools as needed, the pt will perform structured memory tasks with 80% acc to improve independence with ADLs. 3. The pt will demonstrate understanding of active listening skills by using them in 75+ opportunities in structured tasks to improve attention skills necessary for memory in functional situations. 4. The pt will demonstrate understanding of memory strategies by using them in 75 + opportunities in structured tasks to improve memory skills necessary ADLs (e.g., recalling passwords, names, etc.). 5. The pt will complete simple structured problem solving tasks with 80% acc to improve mental flexibility and problem solving skills necessary for functional ADLs. Snf Goals 1. Using external and internal memory tools as needed, the pt will perform ADLs and personal/family responsibilities with Modified [place], as measured by pt/family report and clinician judgment. Treatment Activities Assessed cognitve activity workbook brought with pt. Exercises target a good variety of cognitive communication skills. Additional exercises more directly targeting improvement and strategy building around memory skills were demonstrated and provided to the pt/SO. Given a list of 4 words each related to an associated word (parts/whole) and each presented individually using spaced retrieval technique, the pt recalled target words with 100% acc, 1 verbal cue across 3 trials per word. He then recalled all four words in response to associated words, both immediately and after a delay of 10 min. Skilled feedback and CG training provided for home practice and for transference of skills/prompts to functional tasks. Assessment Patient Response to Treatment Good Rehab Potential Good Impairments Identified Attention,Cognitive-Linguistic Skills,Memory - Short Term, Memory - Working Assessment of Overall Progress Unchanged Assessment of Improvement Using associated word pairs, the pt recalled a list of 4 words, demonstrating stimulability to both spaced retrieval technique and association memory strategy. The pt's SO was highly responsive to training and able to identify ways in which to assist the pt with practice at home and also application to functional tasks. Reviewed with Patient Goals,Progress Being Made,Home Exercise Program Patient/Caregiver Understanding Excellent Plan Amount of Therapy Recommended 4 Months Frequency of Treatment Once a Week Length of Session 45 Minutes Treatment Emphasis Next Session Memory training -- associated word lists; mental manipulation Therapeutic Contents Client Education,Cognitive- Linguistic Training,Home Exercise Program,Information Processing Provided Patient/Caregiver Instruction Home Exercise Program,Plan of Care,Questions/Concerns Therapy Recommendations Continue with Current Program
--- NOTE | 2021-05-19 16:03 | ST.OPTN ---
Visit Care Team Role Provider Type Michael Black MD Attending Provider Physician Family Provider Primary Care Provider Referring Provider Address: [address] [place] [address], [address], [place], [address] TALENT DEVELOPMENT CONSULTANT Treatment Note TALENT DEVELOPMENT CONSULTANT Treatment Note Start: 03/18/21 08:30 Freq: Status: Active Protocol: Document 05/19/21 15:35 FREDIS (Rec: 05/27/21 16:02 FREDIS [email or web address]) Speech Pathology Treatment Note Session Time Visit Start Time 09:30 Visit Stop Time 10:25 Total Visit Minutes 55 Visit Information Visit Number 09/05 Plan of Care Dates 03/18/21 - 06/16/21 Insurance Information Medicare Setting Treatment Setting Outpatient Care Visit Type Note Type Treatment Note Next Note Type Next Note Type Treatment Note General Information General Information The pt is a 80-yr-old male with c/o changes in memory that have worsened gradually over the last 3 years (as documented by his SO, Mona). He has difficulty recalling birthdays, passwords, conversational and directional information, names of friends , grandkids and great- grandkids not regularly visited, etc. The pt was recently found by Dr. Black to have a significant B-12 deficiency and now receives regular B-12 shots, which have boosted his ambition and some memory skills (per pt/SO report) but the majority of memory symptoms persist and interfere with his ability to independently manage daily tasks. As a result, he is increasingly dependent on his SO and on external tools, such as written notes. He and Mona have set up a whiteboard at home to track critical information. The pt takes no oral medications, so remembering meds is not an issue. Subjective Observations/Patient Presentation Pt arrived on time accompanied by SO who was present throughout session. No new complaints. Pt reports feeling things are feeling more normal and SO agreed and stated the pt is engaging in conversation more. Chief Complaint(s) Cognitive Patient Knowledge/Awareness of TALENT DEVELOPMENT CONSULTANT Role Good in Treatment Parent/Caretake Knowledge/Awareness of Good TALENT DEVELOPMENT CONSULTANT Role in Treatment Patient/Caregiver Compliance with Home Good Exercise Program Objective Short Term Goals 1. The pt will collaborate with TALENT DEVELOPMENT CONSULTANT and SO to develop external memory tools to increase independence with ADLs, maintain relationships, and improve QOL. 2. Using external memory tools as needed, the pt will perform structured memory tasks with 80% acc to improve independence with ADLs. 3. The pt will demonstrate understanding of active listening skills by using them in 75+ opportunities in structured tasks to improve attention skills necessary for memory in functional situations. 4. The pt will demonstrate understanding of memory strategies by using them in 75 + opportunities in structured tasks to improve memory skills necessary ADLs (e.g., recalling passwords, names, etc.). 5. The pt will complete simple structured problem solving tasks with 80% acc to improve mental flexibility and problem solving skills necessary for functional ADLs. [facility]pc Goals 1. Using external and internal memory tools as needed, the pt will perform ADLs and personal/family responsibilities with Modified [place], as measured by pt/family report and clinician judgment. Treatment Activities Continued training in external memory tools targeting establishment of AM/PM routines of reviewing daily activities to increase memory recall of time and events. To increase familiarity with and recall of names of grandchildren and great- grandchildren who live away from the pt, recommended the pt buy cards and write short notes to the children. In doing so, he will establish memories of engagement with them and possibly dialog. The pt and SO were agreeable to these recommendations. Discussed POC and agreed to reduce frequency to 1 visit every 3 wks in anticipation of discharge soon. Assessment Patient Response to Treatment Good Rehab Potential Good Impairments Identified Attention,Cognitive-Linguistic Skills,Memory - Short Term, Memory - Working Assessment of Overall Progress Unchanged Assessment of Improvement The pt and SO were highly participatory in development of routines and methods of increasing memory of family members and daily events. The pt has been compliant with other strategies and recommendations and has increased participation in home and social activities. Both the pt and SO are pleased with progress being made. Reviewed with Patient Goals,Progress Being Made,Home Exercise Program Patient/Caregiver Understanding Excellent Plan Amount of Therapy Recommended 1-2 Months Comment 1 visit every 3 wks Length of Session 45 Minutes Treatment Emphasis Next Session Memory training -- associated word lists; mental manipulation Therapeutic Contents Client Education,Cognitive- Linguistic Training,Home Exercise Program,Information Processing Provided Patient/Caregiver Instruction Home Exercise Program,Plan of Care,Questions/Concerns Therapy Recommendations Continue with Current Program
--- NOTE | 2021-06-09 17:34 | ST.OPTN ---
Visit Care Team Role Provider Type Michael Black MD Attending Provider Physician Family Provider Primary Care Provider Referring Provider Address: [address] [place] [address], [address], [place], [address] SHEET METAL DUCT WORKER SUPERVISOR Treatment Note SHEET METAL DUCT WORKER SUPERVISOR Treatment Note Start: 03/18/21 08:30 Freq: Status: Active Protocol: Document 06/09/21 17:22 FREDIS (Rec: 06/09/21 17:34 FREDIS [id number]) Speech Pathology Treatment Note Session Time Visit Start Time 10:30 Visit Stop Time 11:15 Total Visit Minutes 45 Visit Information Visit Number 10/05 Plan of Care Dates 03/18/21 - 06/16/21 Insurance Information Medicare Setting Treatment Setting Outpatient Care Visit Type Note Type Treatment Note Next Note Type Next Note Type Treatment Note General Information General Information The pt is a 80-yr-old male with c/o changes in memory that have worsened gradually over the last 3 years (as documented by his SO, Mona). He has difficulty recalling birthdays, passwords, conversational and directional information, names of friends , grandkids and great- grandkids not regularly visited, etc. The pt was recently found by Dr. Black to have a significant B-12 deficiency and now receives regular B-12 shots, which have boosted his ambition and some memory skills (per pt/SO report) but the majority of memory symptoms persist and interfere with his ability to independently manage daily tasks. As a result, he is increasingly dependent on his SO and on external tools, such as written notes. He and Mona have set up a whiteboard at home to track critical information. The pt takes no oral medications, so remembering meds is not an issue. Subjective Observations/Patient Presentation Pt arrived on time accompanied by SO who was present throughout session. No new complaints. SO returned from a vacation with friends on Wednesday. During her absence, the pt's son and daughter each stayed with him. He was alone 2 days. He had difficulty finding a neighbor's house for a dinner invitation, but found it with phone assistance from his SO. These were new neighbors with whom he was unfamiliar, so he and his SO did not feel that was an unreasonable challenge. He had no other problems. The couple attended an event with co- workers from the pt's past job and reported a good visit. Chief Complaint(s) Cognitive Patient Knowledge/Awareness of SHEET METAL DUCT WORKER SUPERVISOR Role Good in Treatment Parent/Caretake Knowledge/Awareness of Good SHEET METAL DUCT WORKER SUPERVISOR Role in Treatment Patient/Caregiver Compliance with Home Good Exercise Program Objective Short Term Goals 1. The pt will collaborate with SHEET METAL DUCT WORKER SUPERVISOR and SO to develop external memory tools to increase independence with ADLs, maintain relationships, and improve QOL. 2. Using external memory tools as needed, the pt will perform structured memory tasks with 80% acc to improve independence with ADLs. 3. The pt will demonstrate understanding of active listening skills by using them in 75+ opportunities in structured tasks to improve attention skills necessary for memory in functional situations. 4. The pt will demonstrate understanding of memory strategies by using them in 75 + opportunities in structured tasks to improve memory skills necessary ADLs (e.g., recalling passwords, names, etc.). 5. The pt will complete simple structured problem solving tasks with 80% acc to improve mental flexibility and problem solving skills necessary for functional ADLs. Prison Goals 1. Using external and internal memory tools as needed, the pt will perform ADLs and personal/family responsibilities with Modified [place], as measured by pt/family report and clinician judgment. Treatment Activities The pt recalled his activities with his son and daughter with min verbal prompts from SO. Reassessed strategies and external memory tools targeted previously in therapy. The couple reported making progress until SO's trip; they intend to resume these now that she is home again. Skilled feedback was provided RE potential positive impacts of the pt's recent opportunities to increase socialization with family and friends. Encouraged to continue such outings as able with increased participation from the pt in planning and executing activities in order to promote recall of events (e .g., call a restaurant to make reservations). The couple were in agreement. Assessment Patient Response to Treatment Good Rehab Potential Good Impairments Identified Attention,Cognitive-Linguistic Skills,Memory - Short Term, Memory - Working Assessment of Overall Progress Unchanged Assessment of Improvement The pt and SO were receptive to education, feedback and recommendations. SO verbalized understanding and importance of refraining from doing everything for the pt but rather include him in steps of planning and carrying out daily events. The pt is making progress in using external memory tools and increasing engagement with others to support memory. Will follow up in 4 wks d/t conflicts in schedule. Reviewed with Patient Goals,Progress Being Made,Home Exercise Program Patient/Caregiver Understanding Excellent Plan Amount of Therapy Recommended 1-2 Months Comment 1 visit every 3-4 wks, anticipate d/c in 2-3 visits Length of Session 45 Minutes Treatment Emphasis Next Session Memory training -- associated word lists; mental manipulation Therapeutic Contents Client Education,Cognitive- Linguistic Training,Home Exercise Program,Information Processing Provided Patient/Caregiver Instruction Home Exercise Program,Plan of Care,Questions/Concerns Therapy Recommendations Continue with Current Program
--- NOTE | 2021-10-06 15:44 | ST.OPDS ---
Visit Care Team Role Provider Type Michael Black MD Attending Provider Physician Family Provider Primary Care Provider Referring Provider Address: [address] [place] [address], [address], [place], [address] MARKETING SALES CONSULTANT Treatment Note MARKETING SALES CONSULTANT Treatment Note Start: 03/18/21 08:30 Freq: Status: Active Protocol: Document 10/06/21 15:41 FREDIS (Rec: 10/06/21 15:44 FREDIS [id number]) Speech Pathology Treatment Note Visit Information Insurance Information Medicare Setting Treatment Setting Outpatient Care Visit Type Note Type Discharge Summary General Information Patient History The pt is a 80-yr-old male with c/o changes in memory that have worsened gradually over the last 3 years (as documented by his SO, Mona). He has difficulty recalling birthdays, passwords, conversational and directional information, names of friends , grandkids and great- grandkids not regularly visited, etc. Subjective Observations/Patient Presentation The pt was last seen 06/09/21 with plan to f/u in 4 wks but has not returned. He is discharged from services. Objective Short Term Goals 1. The pt will collaborate with MARKETING SALES CONSULTANT and SO to develop external memory tools to increase independence with ADLs, maintain relationships, and improve QOL. 2. Using external memory tools as needed, the pt will perform structured memory tasks with 80% acc to improve independence with ADLs. 3. The pt will demonstrate understanding of active listening skills by using them in 75+ opportunities in structured tasks to improve attention skills necessary for memory in functional situations. 4. The pt will demonstrate understanding of memory strategies by using them in 75 + opportunities in structured tasks to improve memory skills necessary ADLs (e.g., recalling passwords, names, etc.). 5. The pt will complete simple structured problem solving tasks with 80% acc to improve mental flexibility and problem solving skills necessary for functional ADLs. [facility]iary Goals 1. Using external and internal memory tools as needed, the pt will perform ADLs and personal/family responsibilities with Modified [place], as measured by pt/family report and clinician judgment. Plan Therapy Recommendations Discharge from Speech Therapy
== END 2021-10-08 12:22 ==
LOC: SP 10:30
PROVIDERS: Family Provider Student in an Organized Health Care Education/Training Program; PCP Student in an Organized Health Care Education/Training Program; Referring Provider Student in an Organized Health Care Education/Training Program; Visit Provider Student in an Organized Health Care Education/Training Program
DX: R41.3 Other amnesia (principal)
CPT/HCPCS: 96125; 97129; 97130

== ENCOUNTER → 2021-08-18 09:33 | Outpatient (CLI) | payer MEDICARE, OTHER, SELFPAY ==
[2021-08-18 10:17] LABS: Hematocrit 37.3 % (41-53); Hemoglobin 12.5 g/dL (13.5-17.5)
[2021-08-18 11:07] LABS: Creatinine Urine Random 101.4 mg/dL; Protein (Total) Urine Random 8 mg/dL (0-12); Protein Creatinine Ratio Urine 0.07 GRAM/24H
[2021-08-18 11:09] LABS: BUN Creatinine Ratio 15.1 (6-22); Blood Urea Nitrogen 27 mg/dL (9-20); Carbon Dioxide 25 mmol/L (22-32); Chloride 110 mmol/L (98-107); Estimated Glomerular Filt Rate 38 mL/min (>60); Glucose 107 mg/dL (80-110); HEMOLYSIS < 15 (0-50); Potassium 4.5 mmol/L (3.4-5.1); Sodium 142 mmol/L (137-145)
[2021-08-19 05:52] LABS: Parathyroid Hormone Int 48 pg/mL (15-65)
== END ==
PROVIDERS: Family Provider Student in an Organized Health Care Education/Training Program; PCP Student in an Organized Health Care Education/Training Program; Referring Provider Student in an Organized Health Care Education/Training Program; Visit Provider Student in an Organized Health Care Education/Training Program
DX: N05.9 Unspecified nephritic syndrome with unspecified morphologic changes (principal); D64.9 Anemia, unspecified; N25.81 Secondary hyperparathyroidism of renal origin; R80.9 Proteinuria, unspecified
CPT/HCPCS: 36415; 80048; 82570; 83970; 84156; 85014; 85018

== ENCOUNTER → 2021-09-25 08:40 | Outpatient (CLI) | payer MEDICARE, OTHER, SELFPAY ==
[2021-09-25 10:20] LABS: Vitamin B12 564 pg/mL (239-931)
== END ==
PROVIDERS: Family Provider Student in an Organized Health Care Education/Training Program; PCP Student in an Organized Health Care Education/Training Program; Referring Provider Student in an Organized Health Care Education/Training Program; Visit Provider Student in an Organized Health Care Education/Training Program
DX: E53.8 Deficiency of other specified B group vitamins (principal); N18.9 Chronic kidney disease, unspecified
CPT/HCPCS: 36415; 82607

== ENCOUNTER → 2022-03-02 12:03 | Outpatient (CLI) | payer MEDICARE, OTHER, SELFPAY ==
[2022-03-02 14:13] LABS: Hematocrit 36.7 % (41-53); Hemoglobin 12.2 g/dL (13.5-17.5)
[2022-03-02 17:14] LABS: Creatinine Urine Random 91.4 mg/dL; Protein (Total) Urine Random 7 mg/dL (0-12); Protein Creatinine Ratio Urine 0.07 GRAM/24H
[2022-03-02 17:15] LABS: BUN Creatinine Ratio 16.5 (6-22); Blood Urea Nitrogen 29 mg/dL (9-20); Carbon Dioxide 23 mmol/L (22-32); Chloride 109 mmol/L (98-107); Estimated Glomerular Filt Rate 39 mL/min (>60); Glucose 86 mg/dL (80-110); HEMOLYSIS < 15 (0-50); Potassium 4.4 mmol/L (3.4-5.1); Sodium 141 mmol/L (137-145)
[2022-03-04 07:36] LABS: Parathyroid Hormone Int 66 pg/mL (15-65)
== END ==
PROVIDERS: Family Provider Student in an Organized Health Care Education/Training Program; PCP Student in an Organized Health Care Education/Training Program; Referring Provider Student in an Organized Health Care Education/Training Program; Visit Provider Student in an Organized Health Care Education/Training Program
DX: N05.9 Unspecified nephritic syndrome with unspecified morphologic changes (principal); D64.9 Anemia, unspecified; N25.81 Secondary hyperparathyroidism of renal origin; R80.9 Proteinuria, unspecified
CPT/HCPCS: 36415; 80048; 82570; 83970; 84156; 85014; 85018

== ENCOUNTER → 2022-07-20 10:24 | Outpatient (CLI) | payer MEDICARE, OTHER, SELFPAY ==
[2022-07-20 12:11] LABS: Creatinine Urine Random 95.9 mg/dL; Protein (Total) Urine Random 10 mg/dL (0-12)
[2022-07-20 12:20] LABS: Hematocrit 35.8 % (41-53); Hemoglobin 11.7 g/dL (13.5-17.5)
[2022-07-20 12:42] LABS: BUN Creatinine Ratio 15.5 (6-22); Blood Urea Nitrogen 28 mg/dL (9-20); Calcium 9.2 mg/dL (8.4-10.2); Carbon Dioxide 26 mmol/L (22-32); Chloride 108 mmol/L (98-107); Estimated Glomerular Filt Rate 37 mL/min (>60); Glucose 80 mg/dL (80-110); HEMOLYSIS < 15 (0-50); Potassium 4.7 mmol/L (3.4-5.1); Sodium 142 mmol/L (137-145)
[2022-07-22 07:09] LABS: Parathyroid Hormone Int 46 pg/mL (15-65)
== END ==
PROVIDERS: Family Provider Student in an Organized Health Care Education/Training Program; PCP Student in an Organized Health Care Education/Training Program; Referring Provider Student in an Organized Health Care Education/Training Program; Visit Provider Student in an Organized Health Care Education/Training Program
DX: N05.9 Unspecified nephritic syndrome with unspecified morphologic changes (principal); D64.9 Anemia, unspecified; N25.81 Secondary hyperparathyroidism of renal origin; R80.9 Proteinuria, unspecified
CPT/HCPCS: 36415; 80048; 82570; 83970; 84156; 85014; 85018

== ENCOUNTER → 2023-01-26 14:22 | Outpatient (CLI) | payer MEDICARE, OTHER, SELFPAY ==
[2023-01-26 15:24] LABS: Hemoglobin 11.7 g/dL (13.5-17.5); Mean Corpuscular HGB Conc 32.5 % (30-36); Mean Corpuscular Hemoglobin 27.5 PG (26-34); Mean Corpuscular Volume 84.5 fL (80-100); Platelet Count 266 X10^3/uL (150-400); Red Blood Cell Count 4.26 X10^6/uL (4.5-5.9); Red Cell Distribution Width 16.2 % (11.6-14.8); White Blood Cell Count 6.6 X10^3/uL (4.5-11.0)
[2023-01-26 16:20] LABS: Alanine Aminotransferase 16 IU/L (<50); Albumin 4.2 g/dL (3.5-5.0); Albumin Globulin Ratio 1.4 (1.0-2.8); Alkaline Phosphatase 68 U/L (38-126); Aspartate Aminotransferase 22 IU/L (17-59); Bilirubin Total 0.3 mg/dL (0.2-1.3); Blood Urea Nitrogen 28 mg/dL (9-20); Calcium 9.5 mg/dL (8.4-10.2); Carbon Dioxide 24 mmol/L (22-32); Chloride 107 mmol/L (98-107); Cholesterol 153 mg/dL (140-199); Estimated Glomerular Filt Rate 39 mL/min (>60); Glucose 109 mg/dL (80-110); HDL Cholesterol 50 mg/dL (40-60); HEMOLYSIS < 15 (0-50); LDL Cholesterol Calculated 81 mg/dL (<100); Potassium 4.4 mmol/L (3.4-5.1); Sodium 139 mmol/L (137-145); Total Protein 7.2 g/dL (6.3-8.2); Triglycerides 111 mg/dL (35-150)
[2023-01-26 16:50] LABS: TSH w/ Reflex to FT4 2.62 uIU/mL (0.47-4.68)
[2023-01-26 17:07] LABS: Vitamin B12 663 pg/mL (239-931)
== END ==
PROVIDERS: Family Provider Student in an Organized Health Care Education/Training Program; PCP Internal Medicine; Referring Provider Internal Medicine; Visit Provider Internal Medicine
DX: N18.9 Chronic kidney disease, unspecified (principal); F03.90 Unspecified dementia, unspecified severity, without behavioral disturbance, psychotic disturbance, mood disturbance, and anxiety; D63.1 Anemia in chronic kidney disease; E53.8 Deficiency of other specified B group vitamins; N18.32 Chronic kidney disease, stage 3b
CPT/HCPCS: 36415; 80053; 80061; 82607; 84443; 85027

== ENCOUNTER → 2023-01-28 12:54 | Outpatient (CLI) | payer MEDICARE, OTHER, SELFPAY ==
--- NOTE | 2023-01-28 12:55 | DI.CT.S_ITS ---
PROCEDURE: CT HEAD/BRAIN WO CON INDICATIONS: dementia TECHNIQUE: Noncontrast 4.5 mm thick angled axial sections acquired from the foramen magnum to the vertex, with coronal and sagittal reformats. For radiation dose reduction, the following was used: automated exposure control, adjustment of mA and/or kV according to patient size. COMPARISON: None. FINDINGS: Image quality: Excellent. CSF spaces: Basal cisterns are patent. No extra-axial fluid collections. The ventricles are symmetric in size and shape. Brain: No intracranial bleeds or masses. There is cerebral volume loss for age, with resultant ventricular and sulcal prominence. There are periventricular and deep white matter chronic small vessel ischemic changes. There is intracranial internal carotid artery atherosclerosis. Skull and face: Calvarium and visualized facial bones appear intact, without suspicious lesions. Sinuses: Visualized sinuses and mastoids are clear. IMPRESSION: Noncontrast head CT within normal limits for age, with note made of brain parenchymal volume loss and chronic small vessel ischemic change. Dictated by: Henok Murdock M.D. on 01/28/2023 at 13:41 Approved by: Henok Murdock M.D. on 01/28/2023 at 13:41
== END ==
PROVIDERS: Family Provider Student in an Organized Health Care Education/Training Program; PCP Internal Medicine; Referring Provider Internal Medicine; Visit Provider Internal Medicine
DX: F03.90 Unspecified dementia, unspecified severity, without behavioral disturbance, psychotic disturbance, mood disturbance, and anxiety (principal)
CPT/HCPCS: 70450

== ENCOUNTER → 2023-02-05 09:25 | Outpatient (CLI) | payer MEDICARE, OTHER, SELFPAY ==
[2023-02-05 10:11] LABS: Hemoglobin 11.8 g/dL (13.5-17.5)
[2023-02-05 10:44] LABS: BUN Creatinine Ratio 14.6 (6-22); Blood Urea Nitrogen 26 mg/dL (9-20); Calcium 9.7 mg/dL (8.4-10.2); Carbon Dioxide 25 mmol/L (22-32); Chloride 105 mmol/L (98-107); Estimated Glomerular Filt Rate 38 mL/min (>60); Glucose 96 mg/dL (80-110); HEMOLYSIS < 15 (0-50); Potassium 4.8 mmol/L (3.4-5.1); Sodium 137 mmol/L (137-145)
[2023-02-05 11:58] LABS: Creatinine Urine Random 117.4 mg/dL; Protein (Total) Urine Random 9 mg/dL (0-12); Protein Creatinine Ratio Urine 0.07 GRAM/24H
[2023-02-07 10:43] LABS: Parathyroid Hormone Int 44 pg/mL (15-65)
== END ==
PROVIDERS: Family Provider Student in an Organized Health Care Education/Training Program; PCP Internal Medicine; Referring Provider Student in an Organized Health Care Education/Training Program; Visit Provider Student in an Organized Health Care Education/Training Program
DX: N05.9 Unspecified nephritic syndrome with unspecified morphologic changes (principal); D70.9 Neutropenia, unspecified; D63.1 Anemia in chronic kidney disease; N25.81 Secondary hyperparathyroidism of renal origin; R80.9 Proteinuria, unspecified
CPT/HCPCS: 36415; 80048; 82570; 83970; 84156; 85014; 85018

== ENCOUNTER → 2023-06-02 10:44 | Outpatient (CLI) | payer MEDICARE, OTHER, SELFPAY ==
[2023-06-02 11:24] LABS: Hematocrit 35.8 % (41-53); Hemoglobin 11.7 g/dL (13.5-17.5)
[2023-06-02 11:58] LABS: BUN Creatinine Ratio 14.6 (6-22); Blood Urea Nitrogen 26 mg/dL (9-20); Calcium 9.4 mg/dL (8.4-10.2); Carbon Dioxide 24 mmol/L (22-32); Chloride 110 mmol/L (98-107); Estimated Glomerular Filt Rate 38 mL/min (>60); Glucose 113 mg/dL (80-110); HEMOLYSIS < 15 (0-50); Potassium 4.5 mmol/L (3.4-5.1); Sodium 140 mmol/L (137-145)
[2023-06-02 12:07] LABS: Creatinine Urine Random 87.8 mg/dL; Protein (Total) Urine Random 7 mg/dL (0-12); Protein Creatinine Ratio Urine 0.07 GRAM/24H
[2023-06-04 10:57] LABS: Parathyroid Hormone Int 59 pg/mL (15-65)
== END ==
PROVIDERS: Family Provider Student in an Organized Health Care Education/Training Program; PCP Internal Medicine; Referring Provider Student in an Organized Health Care Education/Training Program; Visit Provider Student in an Organized Health Care Education/Training Program
DX: N05.9 Unspecified nephritic syndrome with unspecified morphologic changes (principal); D70.9 Neutropenia, unspecified; D63.1 Anemia in chronic kidney disease; N25.81 Secondary hyperparathyroidism of renal origin; R80.9 Proteinuria, unspecified
CPT/HCPCS: 36415; 80048; 82570; 83970; 84156; 85014; 85018

== ENCOUNTER → 2023-11-11 12:04 | Outpatient (CLI) | payer MEDICARE, OTHER, SELFPAY ==
[2023-11-11 13:28] LABS: Hemoglobin 11.5 g/dL (13.5-17.5)
[2023-11-11 13:49] LABS: HEMOLYSIS < 15 (0-50)
[2023-11-11 13:55] LABS: Aspartate Aminotransferase 21 IU/L (17-59); BUN Creatinine Ratio 16.8 (6-22); Blood Urea Nitrogen 32 mg/dL (9-20); Calcium 9.4 mg/dL (8.4-10.2); Carbon Dioxide 22 mmol/L (22-32); Chloride 113 mmol/L (98-107); Cholesterol 165 mg/dL (140-199); Estimated Glomerular Filt Rate 35 mL/min (>60); Glucose 94 mg/dL (80-110); HDL Cholesterol 59 mg/dL (40-60); LDL Cholesterol Calculated 85 mg/dL (<100); Potassium 4.5 mmol/L (3.4-5.1); Sodium 144 mmol/L (137-145); Triglycerides 107 mg/dL (35-150)
[2023-11-11 14:38] LABS: Vitamin B12 488 pg/mL (239-931)
[2023-11-11 16:28] LABS: Creatinine Urine Random 104.49 mg/dL; Protein (Total) Urine Random 9 mg/dL (0-12); Protein Creatinine Ratio Urine 0.08 GRAM/24H
== END ==
LOC: LAB 12:06
PROVIDERS: Family Provider Student in an Organized Health Care Education/Training Program; PCP Internal Medicine; Referring Provider Student in an Organized Health Care Education/Training Program; Visit Provider Student in an Organized Health Care Education/Training Program
DX: N25.81 Secondary hyperparathyroidism of renal origin (principal); N05.9 Unspecified nephritic syndrome with unspecified morphologic changes; D70.9 Neutropenia, unspecified; D63.1 Anemia in chronic kidney disease; N18.9 Chronic kidney disease, unspecified; N18.32 Chronic kidney disease, stage 3b; E53.8 Deficiency of other specified B group vitamins; R80.9 Proteinuria, unspecified
CPT/HCPCS: 36415; 80048; 80061; 82570; 82607; 83970; 84156; 84450; 85014; 85018

== ENCOUNTER → 2024-05-31 10:28 | Outpatient (CLI) | payer MEDICARE, OTHER, SELFPAY ==
[2024-05-31 11:19] LABS: Hematocrit 34.9 % (41-53); Hemoglobin 11.3 g/dL (13.5-17.5)
[2024-05-31 11:25] LABS: Appearance Urine UA SL CLOUDY; Bilirubin Urine UA NEGATIVE (NEGATIVE); Color Urine UA YELLOW; Glucose Urine UA NEGATIVE (Negative); Ketones Urine UA TRACE (NEGATIVE); Leukocyte Esterase Urine UA NEGATIVE (NEGATIVE); Nitrite Urine UA NEGATIVE (Negative); Occult Blood Urine UA NEGATIVE (Negative); Protein Urine UA NEGATIVE (Negative); Urobilinogen Urine UA 0.2 E.U./dL (0.2)
[2024-05-31 11:31] LABS: Bacteria Urine None Seen; Culture Indicated Urine Cult Not Indicated; RBC Urine None Seen (0-5/HPF); Squamous Epithelial Cell Urine None Seen (0-5/HPF); Urine Volume 10mL (spun); WBC Urine 5-10/HPF (0-5/HPF)
[2024-05-31 11:54] LABS: BUN Creatinine Ratio 14.8 (6-22); Blood Urea Nitrogen 27 mg/dL (9-20); Calcium 9.2 mg/dL (8.4-10.2); Carbon Dioxide 21 mmol/L (22-32); Chloride 110 mmol/L (98-107); Estimated Glomerular Filt Rate 36 mL/min (>60); Glucose 108 mg/dL (80-110); HEMOLYSIS 39 (0-50); Potassium 4.9 mmol/L (3.4-5.1); Sodium 141 mmol/L (137-145)
[2024-06-01 08:13] LABS: Calcium 9.2 mg/dL (8.6-10.2); Parathyroid Hormone, Intact 65 pg/mL (15-65)
== END ==
LOC: LAB 10:33
PROVIDERS: Family Provider Student in an Organized Health Care Education/Training Program; PCP Internal Medicine; Referring Provider Student in an Organized Health Care Education/Training Program; Visit Provider Student in an Organized Health Care Education/Training Program
DX: N05.9 Unspecified nephritic syndrome with unspecified morphologic changes (principal); D70.9 Neutropenia, unspecified; D63.1 Anemia in chronic kidney disease; N25.81 Secondary hyperparathyroidism of renal origin; R80.9 Proteinuria, unspecified
CPT/HCPCS: 36415; 80048; 81001; 82310; 83970; 85014; 85018

== ENCOUNTER → 2024-08-07 11:08 | Outpatient (CLI) | payer MEDICARE, OTHER, SELFPAY ==
--- NOTE | 2024-08-07 11:11 | DI.RAD.S_ITS ---
PROCEDURE: XR CERVICAL SPINE 2V OR 3V INDICATIONS: neck pain/radiculopathy TECHNIQUE: 5 view(s) of the cervical spine were acquired. COMPARISON: None. FINDINGS: Bones: No fractures or dislocations to the C7 level. Moderate disc height loss at the C4-C5 through C6-C7 levels with adjacent endplate sclerosis and anterior osteophytosis. The lateral masses of C1 appear intact on the odontoid view. No suspicious bony lesions. Soft tissues: No prevertebral soft tissue swelling. IMPRESSION: Degenerative change of the cervical spine without evidence of displaced fracture or traumatic subluxation. Dictated by: Sandeep Ivey M.D. on 08/07/2024 at 23:53 Approved by: Sandeep Ivey M.D. on 08/07/2024 at 23:54
== END ==
PROVIDERS: PCP Internal Medicine; Referring Provider Internal Medicine; Visit Provider Internal Medicine
DX: M54.12 Radiculopathy, cervical region (principal)
CPT/HCPCS: 72040

== ENCOUNTER → 2024-10-24 12:20 | Outpatient (CLI) | payer MEDICARE, OTHER, SELFPAY ==
[2024-10-24 12:55] LABS: Hematocrit 33.7 % (41-53); Hemoglobin 11.2 g/dL (13.5-17.5)
[2024-10-24 13:13] LABS: Blood Urea Nitrogen 30 mg/dL (9-20); Calcium 9.4 mg/dL (8.4-10.2); Carbon Dioxide 22 mmol/L (22-32); Chloride 108 mmol/L (98-107); Estimated Glomerular Filt Rate 36 mL/min (>60); Glucose 86 mg/dL (70-99); HEMOLYSIS < 15 (0-50); Potassium 4.8 mmol/L (3.4-5.1); Sodium 139 mmol/L (137-145)
[2024-10-24 14:49] LABS: Protein (Total) Urine Random 12 mg/dL (0-12); Protein Creatinine Ratio Urine 0.15 GRAM/24H
== END ==
PROVIDERS: PCP Internal Medicine; Referring Provider Internal Medicine; Visit Provider Student in an Organized Health Care Education/Training Program
DX: D70.9 Neutropenia, unspecified (principal); D63.1 Anemia in chronic kidney disease; N05.9 Unspecified nephritic syndrome with unspecified morphologic changes; N25.81 Secondary hyperparathyroidism of renal origin; R80.9 Proteinuria, unspecified
CPT/HCPCS: 36415; 80048; 82570; 83970; 84156; 85014; 85018

== ENCOUNTER → 2024-12-28 11:54 | Outpatient (CLI) | payer MEDICARE, OTHER, SELFPAY ==
[2024-12-28 12:36] LABS: Hematocrit 34.5 % (41-53); Hemoglobin 11.2 g/dL (13.5-17.5)
[2024-12-28 13:18] LABS: Blood Urea Nitrogen 31 mg/dL (9-20); Calcium 9.6 mg/dL (8.4-10.2); Carbon Dioxide 21 mmol/L (22-32); Chloride 108 mmol/L (98-107); Estimated Glomerular Filt Rate 30 mL/min (>60); Glucose 101 mg/dL (70-99); HEMOLYSIS < 15 (0-50); Potassium 4.8 mmol/L (3.4-5.1); Sodium 141 mmol/L (137-145)
[2024-12-28 14:44] LABS: Protein (Total) Urine Random 12 mg/dL (0-12); Protein Creatinine Ratio Urine 0.08 GRAM/24H
== END ==
PROVIDERS: PCP Student in an Organized Health Care Education/Training Program; Referring Provider Student in an Organized Health Care Education/Training Program; Visit Provider Student in an Organized Health Care Education/Training Program
DX: D70.9 Neutropenia, unspecified (principal); N05.9 Unspecified nephritic syndrome with unspecified morphologic changes; N25.81 Secondary hyperparathyroidism of renal origin; R80.9 Proteinuria, unspecified; D63.1 Anemia in chronic kidney disease
CPT/HCPCS: 36415; 80048; 82570; 83970; 84156; 85014; 85018

== ENCOUNTER → 2025-01-29 07:37 | Outpatient (CLI) | payer MEDICARE, OTHER, SELFPAY ==
[2025-01-29 08:39] LABS: Hematocrit 35.5 % (41-53); Hemoglobin 11.6 g/dL (13.5-17.5)
[2025-01-29 09:00] LABS: Blood Urea Nitrogen 28 mg/dL (9-20); Calcium 9.3 mg/dL (8.4-10.2); Carbon Dioxide 20 mmol/L (22-32); Chloride 108 mmol/L (98-107); Estimated Glomerular Filt Rate 37 mL/min (>60); Glucose 118 mg/dL (70-99); HEMOLYSIS < 15 (0-50); Potassium 4.6 mmol/L (3.4-5.1); Sodium 140 mmol/L (137-145)
[2025-01-29 09:21] LABS: Protein (Total) Urine Random 15 mg/dL (0-12); Protein Creatinine Ratio Urine 0.13 GRAM/24H
== END ==
PROVIDERS: PCP Internal Medicine; Referring Provider Internal Medicine; Visit Provider Student in an Organized Health Care Education/Training Program
DX: D70.9 Neutropenia, unspecified (principal); N05.9 Unspecified nephritic syndrome with unspecified morphologic changes; D63.1 Anemia in chronic kidney disease; N25.81 Secondary hyperparathyroidism of renal origin; R80.9 Proteinuria, unspecified
CPT/HCPCS: 36415; 80048; 82570; 83970; 84156; 85014; 85018